=== PATIENT | male | born 1960 | race Caucasian/White ===

== ENCOUNTER 2025-01-08 12:10 | Emergency (ER) | payer MEDICARE, SELFPAY ==
--- NOTE | ~2025-01-08 | XR_ITS ---
Examination: XR knee LT min 4V Clinical History: Fall, Lt. knee pain/ limited ROM Comparison: None Technique: 4 views left knee Findings/impression: 1. No fracture, dislocation, or effusion left knee. 2. Moderate medial compartment joint space narrowing Reviewed, dictated and finalized at location R.
[2025-01-08 12:10] VITALS: BP 134/76; PULSE 77; RESP 20; TEMP 36.8; O2SAT 98
--- NOTE | 2025-01-08 12:47 | ED_ITS ---
HPI - Extremity Injury (Lower) General Chief Complaint: Extremity Injury, Lower Stated Complaint: FALL, LEFT KNEE PAIN Source: patient Mode of arrival: ambulatory Limitations: no limitations History of Present Illness HPI Narrative: 64-year-old with a history of kyphoplasty here with a complains left knee pain for past 3 hours. Patient states that his dog wrapped around his knee and he fell onto the knee. Denies any head and neck injuries. The MD complaint: knee injury (left) Onset (ago): hour(s) (1) Type of Injury: unknown Place: home Severity: moderate Relieving factors: nothing Exacerbating factors: nothing Context: fall Other symptoms: none Related Data Allergies Allergy/AdvReac Type Severity Reaction Status Date / Time No Known Allergies Allergy Verified 01/08/25 12:51 Review of Systems Review of Systems: All systems reviewed & are unremarkable except as noted in HPI and below Constitutional: Constitutional: Reports no additional constitutional complaints Eyes: Eyes: Reports no additional eye complaints ENT: Reports system reviewed and no additional complaints, except as documented Cardiovascular: Cardiovascular: Reports no additional cardiovascular complaints Respiratory: Respiratory: Reports no additional respiratory complaints Gastrointestinal: Gastrointestinal: Reports no additional gastrointestinal complaints Musculoskeletal: Musculoskeletal: Reports as per HPI Neurologic: Reports system reviewed and no additional complaints, except as documented Exam Narrative: GENERAL: Well-appearing, well-nourished, and in no acute distress. HEAD: Normocephalic, atraumatic. EYES: PERRLA and EOMI. ENT: Nares clear, no rhinorrhea or epistaxis. Mucous membranes moist. NECK: Supple. CHEST: Clear to auscultation. No respiratory distress. HEART: Regular rate and rhythm. No murmur heard. Normal peripheral pulses. EXTREMITIES: Normal range of motion. No edema. examination of the left knee shows no deformity, no joint effusion SKIN: Warm, dry, no rash. NEURO: No focal deficits. Alert and oriented x3. PSYCH: Normal mood and affect. Course Course Emergency Course: notified him about the x-ray findings. Advised Hi wrap. Patient declined any pain medication for Vital Signs Vital signs: Vital Signs Temperature 36.8 C 01/08/25 12:10 Pulse Rate 77 01/08/25 12:10 Respiratory Rate 20 01/08/25 12:10 Blood Pressure 134/76 01/08/25 12:10 Pulse Oximetry 98 01/08/25 12:10 Oxygen Delivery Room Air 01/08/25 12:10 Temperature 36.8 C 01/08/25 12:10 Pulse Rate 77 01/08/25 12:10 Respiratory Rate 20 01/08/25 12:10 Blood Pressure 134/76 01/08/25 12:10 Pulse Oximetry 98 01/08/25 12:10 Oxygen Delivery Room Air 01/08/25 12:10 Discharge Plan Discharge Clinical Impression: Contusion of knee, left Qualifiers: Encounter type: initial encounter Qualified Code(s): S80.02XA - Contusion of left knee, initial encounter Patient Disposition: Home Condition: Stable Instructions: Knee Sprain (ED), Contusion in Adults (ED) Additional Instructions: take Tylenol ibuprofen for pain, Hi wrap, ice Patient Language: Macedonian Follow-up/Referrals: UNKNOWN,DOCTOR [Primary Care Provider] Time of Disposition: 12:51
== END 2025-01-08 12:53 | disposition home or self-care (01) ==
LOC: CHSED 12:55
PROVIDERS: Emergency Provider Family Medicine
DX: S80.02XA Contusion of left knee, initial encounter (principal); W01.0XXA Fall on same level from slipping, tripping and stumbling without subsequent striking against object, initial encounter
CPT/HCPCS: 73564; 99283